=== PATIENT | female | born 1955 | race Asian ===

== ENCOUNTER 2016-07-22 11:19 | Day surgery (SDC) | payer MEDICAID ==
[~2016-07-22] VITALS: Ht 157.5 cm; Wt 65.5 kg
[~2016-07-22 11:19] MED LIST: 0.9% SODIUM CHLORIDE 10 ML VIAL IVP ONE; ACET-784 PO; ACETAMINOPHEN 325 MG TABLET PO PRN; ALBUTEROL SULFATE HFA 90 MCG/PUFF 8 GM INHALER IH ONE; AMLO1CAP2 PO; ATEN25 PO; BISA5TAB12 PO; CALC-190 PO; CILO2.5OS OD; CYCLOPENTOLATE HCL 2% 2 ML OPHTHALMIC SOLUTION ONE; DEXT1DRO OU; DICL1OS OD; DICLOFENAC SODIUM 0.1% 2.5 ML OPHTHALMIC SOLUTION ONE; ESCI20TA PO; FentaNYL CITRATE-PF 100 MCG/2 ML VIAL IVP ONE; GATIFLOXACIN 0.5% 2.5 ML OPHTHALMIC SOLUTION ONE; GLYCOPYRROLATE 0.2 MG/ML VIAL IM ONE; GUAR1PAC4 PO; IPRA3AMP4 NEB; MIDAZOLAM HCL 2 MG/2 ML VIAL IVP ONE; MINE473O2 AU; MIRALAX PO; MOME17N NASAL; NAPR-58 PO; NAPR250T2 PO; NEOSTIGMINE METHYLSULFATE 1 MG/ML 10 ML VIAL IVP ONE; OSEL75 PO; PHENYLEPHRINE HCL 10 MG/ML VIAL IVP ONE; PHENYLEPHRINE HCL 2.5% 2 ML OPHTHALMIC SOLUTION ONE; PREDAOS OD; PROPOFOL 1% 20 ML VIAL IVP ONE; RINGERS SOLUTION,LACTATED 500 ML IV ONE; ROCURONIUM BROMIDE 10 MG/ML 5 ML VIAL IVP ONE; SUCCINYLCHOLINE CHLORIDE 20 MG/ML 10 ML VIAL IVP ONE; TETRACAINE HCL 0.5% 2 ML OPHTHALMIC SOLUTION ONE; TETRACAINE HCL 0.5% 2 ML OPHTHALMIC SOLUTION OS ONE; TROPICAMIDE 1% 2 ML OPHTHALMIC SOLUTION ONE
[2016-07-22] MEDS: CYCLOPENTOLATE HCL 2% 2 ML OPHTHALMIC SOLUTION OS SCH ×3 (11:50→12:04)
[2016-07-22] MEDS: GATIFLOXACIN 0.5% 2.5 ML OPHTHALMIC SOLUTION OS SCH ×3 (11:50→12:13)
[2016-07-22] MEDS: PHENYLEPHRINE HCL 2.5% 2 ML OPHTHALMIC SOLUTION OS SCH ×3 (11:50→12:04)
[2016-07-22] MEDS: DICLOFENAC SODIUM 0.1% 2.5 ML OPHTHALMIC SOLUTION OS SCH ×3 (11:50→12:14)
[2016-07-22 12:41] LABS: GLUCOSE,POINT OF CARE 110 MG/DL (70-110)
[2016-07-22] MEDS ORDERED: AcetaZOLAMIDE 250 MG TABLET PO ONE (12:45)
[2016-07-22] MEDS ORDERED: AcetaZOLAMIDE 250 MG TABLET ONE (13:57)
[2016-07-22] MEDS ORDERED: RINGERS SOLUTION,LACTATED 500 ML IV ONE (14:03)
[2016-07-22] MEDS ORDERED: LIDOCAINE HCL/PF 1% 2 ML VIAL IM ONE (14:43)
[2016-07-22] MEDS ORDERED: POVIDONE-IODINE 10% 15 ML SOLUTION UD TP ONE (14:43)
[2016-07-22] MEDS ORDERED: HYALURONATE SODIUM 12 MG/ML 0.8 ML SYRINGE IO ONE (14:43)
[2016-07-22] MEDS ORDERED: HYALURONATE SOD/CHONDROITIN SOD 0.5 ML VIAL IO ONE (14:43)
[2016-07-22] MEDS ORDERED: MOXIFLOXACIN HCL 0.5% 3 ML OPHTHALMIC SOLUTION OS ONE (14:43)
[2016-07-22] MEDS ORDERED: EPINEPHrine 1:1,000 [1 MG/ML] AMP IVP ONE (14:43)
[2016-07-22] MEDS ORDERED: OXYGEN THERAPY IH SCH (20:00)
== END 2016-07-23 14:50 | disposition home or self-care (01) ==
LOC: SURGERY 11:19
PROVIDERS: ATTEND Ophthalmology
DX: H26.9 Unspecified cataract (principal); I10 Essential (primary) hypertension; F79 Unspecified intellectual disabilities; Z88.2 Allergy status to sulfonamides; Z88.8 Allergy status to other drugs, medicaments and biological substances; Z90.710 Acquired absence of both cervix and uterus; Z98.41 Cataract extraction status, right eye; Z79.899 Other long term (current) drug therapy
CPT/HCPCS: 66982; 82962; 93005; C1780; J0330; J2250; J2370; J2704; J3010; J3490 ×2; J7120; J0171; J3535

== ENCOUNTER → 2023-11-19 | Day surgery (SDC) | payer OTHER ==
[~2023-11-19] VITALS: Ht 165.1 cm; Wt 60.4 kg
[~2023-11-19] MED LIST changes: -0.9% SODIUM CHLORIDE 10 ML VIAL IVP ONE; -ACETAMINOPHEN 325 MG TABLET PO PRN; -ALBUTEROL SULFATE HFA 90 MCG/PUFF 8 GM INHALER IH ONE; +AMPICILLIN SODIUM 2 GM/NS 100 ML IV ONE; +ATEN-73 PO; -ATEN25 PO; +ATOR40TA28 PO; +BISA-151 PO; -BISA5TAB12 PO; -CILO2.5OS OD; +CIPR2.5D17 OD; -CYCLOPENTOLATE HCL 2% 2 ML OPHTHALMIC SOLUTION ONE; +DEXAMETHASONE SOD PHOS 4 MG/ML VIAL IVP ONE; -DICLOFENAC SODIUM 0.1% 2.5 ML OPHTHALMIC SOLUTION ONE; -ESCI20TA PO; +ESCI20TA87 PO; -FentaNYL CITRATE-PF 100 MCG/2 ML VIAL IVP ONE; -GATIFLOXACIN 0.5% 2.5 ML OPHTHALMIC SOLUTION ONE; -GLYCOPYRROLATE 0.2 MG/ML VIAL IM ONE; +IPRA3AMP24 NEB; -IPRA3AMP4 NEB; +LIDOCAINE/PF 2% 5 ML VIAL IM ONE; +METF-81 PO; -MIDAZOLAM HCL 2 MG/2 ML VIAL IVP ONE; -MINE473O2 AU; -MOME17N NASAL; +MOME17SP4 NASAL; +NAPR-1025 PO; +NAPR-1197 PO; -NAPR-58 PO; -NAPR250T2 PO; -NEOSTIGMINE METHYLSULFATE 1 MG/ML 10 ML VIAL IVP ONE; +ONDANSETRON HCL 4 MG/2 ML VIAL IVP ONE; -OSEL75 PO; +OSEL75CA45 PO; -PHENYLEPHRINE HCL 10 MG/ML VIAL IVP ONE; -PHENYLEPHRINE HCL 2.5% 2 ML OPHTHALMIC SOLUTION ONE; +RINGERS SOLUTION,LACTATED 1,000 ML IV ONE; -RINGERS SOLUTION,LACTATED 500 ML IV ONE; -SUCCINYLCHOLINE CHLORIDE 20 MG/ML 10 ML VIAL IVP ONE; +SUGAMMADEX SODIUM 200 MG/2 ML VIAL IVP ONE; -TETRACAINE HCL 0.5% 2 ML OPHTHALMIC SOLUTION ONE; -TETRACAINE HCL 0.5% 2 ML OPHTHALMIC SOLUTION OS ONE; -TROPICAMIDE 1% 2 ML OPHTHALMIC SOLUTION ONE; +[UNRECOGNIZED DRUG - CODE] AU
[2023-11-19 07:34] LABS: BASOPHILS % (AUTO) 0.3 % (0.0-2.0); EOSINOPHILS % (AUTO) 1.5 % (1.0-6.0); HEMATOCRIT 39.6 % (36-46); HEMOGLOBIN 13.1 g/dL (12.0-16.0); LYMPHOCYTES # (AUTO) 1.2 K/uL (1.0-4.8); LYMPHOCYTES % (AUTO) 12.1 % (22.0-44.0); MEAN CORPUSCULAR HEMOGLOBIN 27.8 pg (26.0-34.0); MEAN CORPUSCULAR VOLUME 84 fL (80-100); MONOCYTES # (AUTO) 0.6 K/uL (0.1-1.0); MONOCYTES % (AUTO) 6.2 % (2.0-9.0); NEUTROPHILS # (AUTO) 8.2 K/uL (1.8-7.7); NEUTROPHILS % (AUTO) 79.9 % (40.0-70.0); PLATELET COUNT (AUTO) 208 K/uL (150-450); RED BLOOD CELL COUNT(AUTO) 4.71 MIL/uL (4.00-5.20); RED CELL DISTRIBUTION WIDTH 15.1 % (11.5-14.5); WHITE BLOOD COUNT (AUTO) 10.2 K/uL (4.5-11.0)
[2023-11-19 07:47] LABS: PROTHROMBIN TIME 10.6 SEC (9.4-11.6)
[2023-11-19 07:50] LABS: ANION GAP 8 mmol/L (8-16); CALCIUM, TOTAL 9.3 mg/dL (8.8-10.5); CARBON DIOXIDE 29 mmol/L (22-29); CHLORIDE 103 mmol/L (98-107); CREATININE 0.65 mg/dL (0.60-1.30); GLOMERULAR FILTR. RATE CALC > 60 mL/min (>60); GLUCOSE,RANDOM 137 mg/dL (70-110); POTASSIUM 3.8 mmol/L (3.5-5.1); SODIUM SERUM 140 mmol/L (136-145); UREA NITROGEN, BLOOD 13 mg/dL (7-18)
[2023-11-19 07:56] LABS: ALANINE AMINOTRANSFERASE 20 U/L (12-78); ALBUMIN 3.5 g/dL (3.4-5.0); ALKALINE PHOSPHATASE 123 U/L (46-116); ASPARTATE AMINOTRANSFERASE 19 U/L (15-37); BILIRUBIN,TOTAL 0.9 mg/dL (0.1-1.0); TOTAL PROTEIN, SERUM 7.6 g/dL (6.4-8.2)
[2023-11-19] MEDS: RINGERS SOLUTION,LACTATED 1,000 ML IV ONE (10:05)
[2023-11-19] MEDS: LIDOCAINE 1%/EPI 1:200,000/PF 30 ML VIAL ONE (12:31)
[2023-11-19 13:06] LABS: GLUCOMETER DEV NAME(LOC) SDS.; GLUCOSE,POINT OF CARE 128 MG/DL (70-110)
== END | disposition home or self-care (01) ==
LOC: SURGERY 06:32
PROVIDERS: ATTEND Dentist General Practice
DX: K05.30 Chronic periodontitis, unspecified (principal); K02.9 Dental caries, unspecified; R94.31 Abnormal electrocardiogram [ECG] [EKG]; J45.909 Unspecified asthma, uncomplicated; I10 Essential (primary) hypertension; E11.9 Type 2 diabetes mellitus without complications; E70.30 Albinism, unspecified; J42 Unspecified chronic bronchitis; Z90.710 Acquired absence of both cervix and uterus
CPT/HCPCS: 41899; 71045; 80053; 85025; 85610; 85730; 36415; 93005; J0290; J2704; J1100; J3490 ×3; J2405; Q9967; J7120